=== PATIENT | female | born 1980 | race Two or more races ===

== ENCOUNTER 2024-03-28 18:25 | Emergency (ER) | payer MEDICAID, SELFPAY ==
--- NOTE | ~2024-03-28 | CT_ITS ---
EXAMINATION: CT ABDOMEN AND PELVIS WITH CONTRAST CLINICAL INFORMATION: Pain. Evaluate for pyelonephritis COMPARISON: None available. TECHNIQUE: Multidetector volumetric images were obtained from the superior aspect of the liver through the pubic symphysis following administration 85 mL of Omnipaque 350 intravenous contrast. Sagittal and coronal reformatted images were obtained on the technologist's workstation. Oral contrast: No This CT examination was performed using dose optimization techniques as appropriate, variously including the following: *Automated exposure control *Adjustment of mA and/or kV according to patient size (this includes techniques or standardized protocols for targeted exams where dose is matched to indication/reason for exam; i.e. extremities or head) *Use of iterative reconstruction technique DLP: 417 mGy-cm FINDINGS: LUNG BASES: The visualized lung bases are unremarkable. LIVER, GALLBLADDER, AND BILIARY TREE: The liver is normal in size, shape, and attenuation. No focal hepatic lesion or biliary ductal dilatation is present. The gallbladder is unremarkable with no evidence of radiopaque gallstones, gallbladder wall thickening, or obvious pericholecystic inflammatory changes. PANCREAS: Unremarkable. SPLEEN: Unremarkable. ADRENAL GLANDS: Unremarkable. KIDNEYS AND URETERS: The kidneys are normal in size, shape, and attenuation. No hydronephrosis, hydroureter, or calculi seen. No perinephric stranding. BLADDER: Unremarkable. GASTROINTESTINAL TRACT: Appendix normal. Large bowel normal. Small bowel normal. Stomach normal. ABDOMINAL WALL: There is a small fat-containing umbilical hernia measuring up to 1 cm transverse and 2.3 cm AP. There is an additional small midline fat-containing hernia located 1 cm proximal to the umbilical hernia. The defect measures 1.5 cm transverse and 1 cm craniocaudal with the fat-containing hernia sac measuring 2.7 x 3.4 x 2.7 LYMPH NODES: Normal. VASCULAR: There is prominent veins in the pelvis PELVIC VISCERA: Unremarkable. OSSEOUS STRUCTURES: Unremarkable. CT/CT abdomen pelvis w IV con IMPRESSION: 1. No CT evidence for pyelonephritis. 2. Small fat-containing umbilical hernia and small fat-containing midline ventral hernia. 3. Prominent veins in the pelvis raising the question of pelvic congestion syndrome. Fleischner guidelines were followed. Electronically signed by: David Smith MD 03/28/2024 10:26 PM [facility]
--- NOTE | ~2024-03-28 | XR_ITS ---
EXAMINATION: XR CHEST CLINICAL INFORMATION: cough COMPARISON: None available. TECHNIQUE: 2 views of the chest were obtained. FINDINGS: No significant abnormality is noted involving the heart, lungs, mediastinum, bony thorax or soft tissues. XR/XR chest 2V IMPRESSION: Unremarkable examination. Electronically signed by: David Smith MD 03/28/2024 10:19 PM [facility]
[2024-03-28 18:38] VITALS: BP 113/78; PULSE 110; O2SAT 98
[2024-03-28 18:39] VITALS: BP 134/88; PULSE 96; RESP 18; TEMP 37.4; O2SAT 97; BMI 28.9
[2024-03-28] MEDS: 0.9 % Sodium Chloride 1,000 ML 999 ML IV (19:04)
[2024-03-28] MEDS: Ketorolac Tromethamine 15 MG/ML VIAL IVPUSH (19:04)
[2024-03-28] MEDS: Phenazopyridine HCL 200 MG TABLET PO (19:05)
--- NOTE | 2024-03-28 19:05 | ED.GENADULT ---
HPI - General Adult General Chief complaint: General Medical Stated complaint: bladder pain, headache,chills Time Seen by Provider: 03/28/24 18:49 Source: patient Limitations: no limitations History of Present Illness ED Provider: Rossy Hoover PA-C HPI narrative: 43-year-old female presents with fever. Patient states she completed treatment for a urinary tract infection 5 days ago. Today, she developed fever, dysuria with nausea and vomiting. Patient also feels as if she has decreased urine output. Denies abdominal pain or back pain. Related Data Previous Rx's ?Medication ?Instructions ?Recorded cephalexin 500 mg capsule 500 mg PO BID #14 caps 03/28/24 Allergies Allergy/AdvReac Type Severity Reaction Status Date / Time No Known Allergies Allergy Verified 03/28/24 18:42 Review of Systems Review of Systems: Yes all other systems are reviewed and are negative Constitutional: Constitutional: Denies fatigue and Reports fever(s) Cardiovascular: Cardiovascular: Denies chest pain and Denies dyspnea Respiratory: Respiratory: Denies cough and Denies dyspnea Gastrointestinal: Gastrointestinal: Denies abdominal pain, Reports nausea and Reports vomiting Genitourinary: Genitourinary: Denies hematuria and Reports dysuria Musculoskeletal: Musculoskeletal: Denies back pain Endocrine: Endocrine: Denies fatigue [facility] Past Medical History Attestation statement: The following information was validated with the patient. Social History Social History Alcohol intake: never Smoked in Last 30 Days: No Use of substances other than those prescribed or required for medical reasons: No Advance Directives: No Advance Directives Information Provided: No Do you have a plan to hurt others: No Plan Physical Exam ED Vital Signs: Vital Signs - 24 hr 03/28/24 18:39 03/28/24 19:18 03/28/24 20:24 Temperature 99.3 F 100.3 F 99.6 F Pulse Rate 96 85 93 Respiratory Rate 18 18 16 Blood Pressure 134/88 123/82 110/74 Pulse Oximetry 97 97 95 Oxygen Delivery Method Room Air Room Air Room Air 03/28/24 23:18 03/28/24 23:29 Temperature 99 F 99 F Pulse Rate 80 80 Respiratory Rate 14 14 Blood Pressure 109/72 109/72 Pulse Oximetry 98 98 Oxygen Delivery Method Room Air Room Air BMI result Body Mass Index 28.9 Const Other: Alert, ill in appearance Orientation/consciousness: patient oriented x3 Resp Other: Nonlabored respirations Cardio Other: Normal peripheral perfusion GI Other: Abdomen is soft, nondistended nontender Back/Spine/Pelvis Other: No CVA tenderness Skin Other: Warm dry no rash Neuro General: patient oriented x3, no focal motor deficits and CN's II-XI intact bilaterally Psych Other: Calm cooperative Course Reevaluation(s) Reevaluation #1: I want to note thatI am not concerned for sepsis, the patient's initial heart rate was 96 upon arrival, she was being moved around settled in bed, her heart rate is 82, we will update the vitals. Time: 19:05 Reevaluation #2: I am now considering sepsis, she has a temp of 100.3...adding blood cxs an lactic starting abx, she does not need weight based IVF per 30 ml/kg, her sbp is 123...she is getting a liter o NS Time: 19:39 Additional Reevaluation(s): 03/29/2024 14:23 - I, Rubina Zavala [employer], received a call from patient. She advises me that due to her testing COVID- 19 positive she had a friend sheepskin pickler her prescription for antibiotic from the pharmacy. Reportedly the friend accidentally left this medication on the bus and was unable to retrieve it. She is requesting that a 2nd prescription be sent to her pharmacy which I have done so. Medications Administered Discontinued Medications Generic Name Dose Route Start Last Admin Trade Name Rodri PRN Reason Stop Dose Admin Ceftriaxone Sodium 2 gm 03/28/24 19:41 03/28/24 20:24 Ceftriaxone Sodium 2 Gm Vial IVPUSH 03/28/24 19:42 2 gm ONCE ONE Administration Sodium Chloride 1,000 mls @ 999 mls/hr 03/28/24 19:00 03/28/24 20:13 Ns IV 03/28/24 20:00 Infused .Q1H1M AC Infusion Iohexol 85 ml 03/28/24 20:12 03/28/24 20:12 Iohexol 350 Mg/Ml 100 Ml Infus..Btl IV 03/28/24 20:13 85 ml ONCE ONE Administration Ketorolac Tromethamine 15 mg 03/28/24 18:50 03/28/24 19:04 Ketorolac Tromethamine 15 Mg/Ml Vial IVPUSH 03/28/24 18:51 15 mg ONCE ONE Administration Ondansetron HCl 4 mg 03/28/24 19:43 03/28/24 20:24 Ondansetron Hcl 4 Mg/2 Ml Vial IVPUSH 03/28/24 19:44 4 mg ONCE ONE Administration Phenazopyridine HCl 200 mg 03/28/24 18:50 03/28/24 19:05 Phenazopyridine Hcl 200 Mg Tablet PO 03/28/24 18:51 200 mg ONCE ONE Administration Medical Decision Making Medical Decision Making MDM Narrative: 43-year-old female presents with fever. Patient states she completed treatment for a urinary tract infection 5 days ago. Today, she developed fever, dysuria with nausea and vomiting. Patient also feels as if she has decreased urine output. Denies abdominal pain or back pain. Problem: Recurrent UTI History: Per patient I have considered the following differential diagnoses: UTI, pyelonephritis, renal colic, sepsis Plan: I am considering sepsis, her heart rate is elevated, and she is objectively febrile. Adding blood cultures, lactic acid. Her blood pressure is stable, she does not require weight based IV fluid resuscitation at a rate of 30 mL/kilogram, we will give her 1 L of IV fluid, starting ceftriaxone. Given urinary symptoms with the fever, I am concerned for potential pyelonephritis versus infected kidney stone, it is odd that she has no abdominal pain or back pain. We will obtain a CT scan. Giving pain and nausea medication with IV fluid. Screening labs including a chest x-ray and viral panel were obtained from triage. Urinalysis is in process. I have independently reviewed the following tests: Labs: No leukocytosis, but left shift noted, not anemic, no electrolyte abnormality, lactate 1.1, urine infected, viral panel positive for SARs Chest x-ray: XR/XR chest 2V IMPRESSION: Unremarkable examination. CT abdomen and pelvis: RDER #: [id number] CT/CT abdomen pelvis w IV con IMPRESSION: 1. No CT evidence for pyelonephritis. 2. Small fat-containing umbilical hernia and small fat-containing midline ventral hernia. 3. Prominent veins in the pelvis raising the question of pelvic congestion syndrome. Fleischner guidelines were followed. Lab Data 03/28/24 19:24 03/28/24 19:24 Labs: Lab Results 03/28/24 03/28/24 03/28/24 Range/Units 19:24 19:57 20:16 WBC 8.1 (4.8-10.8) X10*3/uL RBC 3.75 L (4.20-5.50) X10*6/uL Hgb 12.3 (12.0-16.0) g/dl Hct 34.7 L (37.0-47.0) % MCV 92.5 (80.0-98.0) fL MCH 32.8 (27.0-33.0) pg MCHC 35.4 H (31.0-35.0) g/dl RDW 12.4 (11.0-16.0) % Plt Count 216 (160-400) X10*3/uL MPV 10.3 (9.4-12.3) fL Immature Gran % (Auto) 0.2 (0.0-0.4) % Neut % (Auto) 82.0 H (45-73) % Lymph % (Auto) 6.8 L (20-40) % Spencer % (Auto) 10.5 (2-11) % Eos % (Auto) 0.1 (0-4) % Baso % (Auto) 0.4 (0-2) % Lymph # (Auto) 0.6 L (1.2-4.9) X10*3/uL Spencer # (Auto) 0.9 (0.1-1.2) X10*3/uL Eos # (Auto) 0.0 (0.0-0.4) X10*3/uL Baso # (Auto) 0.0 (0.0-0.2) X10*3/uL Abs Immat Gran (auto) 0.02 (0.00-0.03) X10*3/uL Absolute Neuts (auto) 6.7 (2.0-8.3) x10*3/uL Absolute Nucleated RBC 0.000 (0.0-0.012) X10*3/uL Nucleated RBC % (auto) 0.0 (0.0-0.2) /100WBC Sodium 136 (135-145) mmol/L Potassium 3.7 (3.3-5.1) mmol/L Chloride 109 H (96-108) mmol/L Carbon Dioxide 19 L (22-29) mmol/L Anion Gap 12 (12-20) BUN 6 L (9-16) mg/dL Creatinine 0.79 (0.5-1.4) mg/dL Estim Creat Clear Calc 77.6 Estimated GFR > 60 Random Glucose 108 (60-115) mg/dL Lactic Acid 1.1 (0.5-2.0) mmol/L Calcium 8.5 (8.4-10.2) mg/dL Magnesium 1.8 (1.6-2.6) mg/dL Total Bilirubin 0.3 (0.0-1.0) mg/dL AST 28 (5-31) U/L ALT 12 (0-31) U/L Alkaline Phosphatase 54 (39-117) U/L Total Protein 6.8 (6.5-8.0) g/dL Albumin 3.8 (3.5-5.0) g/dL Beta HCG, Quant < 2 mIU/mL Urine Color Dark Yellow Urine Appearance Turbid Urine pH 7.0 (5.0-9.0) Ur Specific Trent 1.010 (1.005-1.025) Urine Protein 100 (2+) H (Neg-Trace) mg/dL Urine Glucose (UA) Negative (Negative) mg/dL Urine Ketones 15 (Negative) mg/dL Urine Blood Large (3+) H (Negative) Urine Nitrite Positive H (Negative) Ur Leukocyte Esterase Large (3+) H (Negative) Urine RBC >20 H (0-2) /HPF Urine WBC >50 H (0-5) /HPF Ur Squamous Epith Cells 0-2 (0-2) /HPF Urine Bacteria Trace (None Seen) Hyaline Casts 6-10 (0-2) /LPF Influenza Type A (PCR) NEGATIVE (Negative) Influenza Type B (PCR) NEGATIVE (Negative) RSV RNA Qual (PCR) NEGATIVE (Negative) SARS-CoV-2 RNA (RT-PCR) POSITIVE A (Negative) Discharge Plan Discharge Clinical Impression: UTI (urinary tract infection), SARS-CoV-2 positive Patient Disposition: Home, Self-Care Instructions: Urinary Tract Infection in Women (ED) Additional Instructions: You were found to have a urinary tract infection and you tested positive for sars-CoV-2. See home care instructions. There were no acute findings on the CT scan, and your chest x-ray was clear. Take the cephalexin as directed for your urinary tract infection. Follow up with your primary care provider as needed. Prescriptions: New cephalexin 500 mg capsule 500 mg PO BID Qty: 14 0RF Interventions: ED Discharge Assessment Last Done: 03/28/24 23:29 Discharge Date/Time: 03/28/24 23:30 Print Language: Sami
[2024-03-28 19:18] VITALS: BP 123/82; PULSE 85; RESP 18; TEMP 37.9; O2SAT 97
[2024-03-28 19:29] LABS: Basophils Percent Auto 0.4 % (0-2); Eosinophils Percent Auto 0.1 % (0-4); Hematocrit 34.7 % (37.0-47.0); Hemoglobin 12.3 g/dl (12.0-16.0); Imm Gran Abs Auto 0.02 X10*3/uL (0.00-0.03); Imm Gran Pct Auto 0.2 % (0.0-0.4); Lymphocytes Absolute Auto 0.6 X10*3/uL (1.2-4.9); Lymphocytes Percent Auto 6.8 % (20-40); MANUAL DIFF FLAG NO; Mean Corpuscular HGB Conc 35.4 g/dl (31.0-35.0); Mean Corpuscular Hemoglobin 32.8 pg (27.0-33.0); Mean Corpuscular Volume 92.5 fL (80.0-98.0); Mean Platelet Volume 10.3 fL (9.4-12.3); Monocytes Absolute Auto 0.9 X10*3/uL (0.1-1.2); Monocytes Percent Auto 10.5 % (2-11); Neutrophils Absolute Auto 6.7 x10*3/uL (2.0-8.3); Platelet Count 216 X10*3/uL (160-400); Red Blood Count 3.75 X10*6/uL (4.20-5.50); Red Cell Distribution Width 12.4 % (11.0-16.0); White Blood Count 8.1 X10*3/uL (4.8-10.8)
--- NOTE | 2024-03-28 19:40 | MHC.EDTECH ---
This pct assumed care of Patient at 1900 ,vitals taken and blood drawn and sent to lab ,Patient at bedside .
[2024-03-28 19:53] LABS: Alanine Aminotransferase 12 U/L (0-31); Albumin Level 3.8 g/dL (3.5-5.0); Alkaline Phosphatase 54 U/L (39-117); Anion Gap 12 (12-20); Aspartate Amino Transferase 28 U/L (5-31); Bilirubin Total 0.3 mg/dL (0.0-1.0); Blood Urea Nitrogen 6 mg/dL (9-16); Calcium 8.5 mg/dL (8.4-10.2); Carbon Dioxide 19 mmol/L (22-29); Chloride 109 mmol/L (96-108); Creatinine Clr Calc Pharmacy 77.6; Estimated Glomerular Filt Rate > 60; Glucose Random 108 mg/dL (60-115); HCG Quantitative < 2 mIU/mL; Magnesium 1.8 mg/dL (1.6-2.6); Potassium 3.7 mmol/L (3.3-5.1); Sodium 136 mmol/L (135-145); Total Protein 6.8 g/dL (6.5-8.0)
[2024-03-28 20:05] LABS: Appearance Urine Turbid; Color Urine Dark Yellow; Glucose Urine UA Negative (Negative); Leukocyte Esterase Urine Large (3+) (Negative); Nitrite Urine Positive (Negative); UMIC TRIGGER UACC YES; Urine Blood Large (3+) (Negative); Urine Ketones 15 mg/dL (Negative); Urine Protein 100 (2+) mg/dL (Neg-Trace)
[2024-03-28] MEDS: iohexoL 350 MG/ML 100 ML INFUS..BTL 85 ML IV (20:12)
[2024-03-28 20:20] LABS: Lactic Acid 1.1 mmol/L (0.5-2.0)
[2024-03-28 20:24] VITALS: BP 110/74; PULSE 93; RESP 16; TEMP 37.6; O2SAT 95
[2024-03-28] MEDS: cefTRIAXone sodium 2 GM VIAL IVPUSH (20:24)
[2024-03-28] MEDS: ondansetron HCL 4 MG/2 ML VIAL IVPUSH (20:24)
[2024-03-28 20:25] LABS: Bacteria Urine Trace (None Seen); RBC Urine >20 /HPF (0-2); Squamous Epithelial Cell Urine 0-2 /HPF (0-2); UACC Culture Trigger YES; WBC Urine >50 /HPF (0-5)
[2024-03-28 21:07] LABS: Influenza A PCR NEGATIVE (Negative); Influenza B PCR NEGATIVE (Negative); Resp Syncy Virus RNA Qual PCR NEGATIVE (Negative); SARS COV2 PCR INHOUSE POSITIVE (Negative)
[2024-03-28 23:18] VITALS: BP 109/72; PULSE 80; RESP 14; TEMP 37.2; O2SAT 98
[2024-03-28 23:29] VITALS: BP 109/72; PULSE 80; RESP 14; TEMP 37.2; O2SAT 98
== END 2024-03-28 23:30 | disposition home or self-care (01) ==
PROVIDERS: Physician Assistant Medical; Emergency Provider Emergency Medicine
DX: U07.1 COVID-19 (principal); N39.0 Urinary tract infection, site not specified
CPT/HCPCS: 0241U; 36415; 71046; 74177; 80053; 81001; 83605; 83735; 84702; 85025; 87040; 87086; 96361; 96374; 96375; 99284; J0696; J1885; J2405; Q9967